=== PATIENT | female | born 1975 | race Caucasian/White ===

== ENCOUNTER 2017-07-03 08:07 | Emergency (ER) | payer MEDICAID ==
[2017-07-03] MEDS ORDERED: KETOROLAC TROMETHAMINE 30 MG/ML VIAL IM ONE (08:37)
[2017-07-03] MEDS ORDERED: ORPHENADRINE CITRATE 30 MG/ML VIAL IM ONE (08:38)
[2017-07-03] MEDS ORDERED: KETOROLAC TROMETHAMINE 30 MG/ML VIAL ONE (08:40)
[2017-07-03] MEDS ORDERED: ORPHENADRINE CITRATE 30 MG/ML VIAL ONE (08:48)
[2017-07-03 08:54] LABS: Urine Bilirubin Negative (NEGATIVE); Urine Ketone 5 mg/dL (NEGATIVE); Urine Nitrite Negative (NEGATIVE); Urine Protein Negative (NEGATIVE); Urine Specific Gravity >=1.030 SP.GR. (1.005-1.010); Urine Urobilinogen Normal (NORMAL)
[2017-07-03 09:06] LABS: Urine Amorphous Sediment Few - 1+ (NONE-FEW); Urine Appearance Clear; Urine Bacteria TRACE; Urine Blood 5 /ul (NEGATIVE); Urine Color Dark Yellow; Urine RBC 0-5 /hpf (0-5); Urine WBC None Seen /hpf (0-5)
--- NOTE | 2017-07-03 09:42 | ERNOTE ---
Back Pain ER HPI Date of Service: 07/03/17 Time Seen by Provider: 07/03/17 08:50 Source: patient Exam Limitations: no limitations Immunizations: IMMUNIZATION HX Immunizations Up to Date Yes History of Influenza Vaccine No Hx Pneumococcal Vaccination More Information Required Allergies/Adverse Reactions: Allergies No Known Allergies Allergy (Verified 07/03/17 08:21) Home Medications: HOME MEDICATIONS Alprazolam [Xanax] 1 mg PO PRN PRN 09/30/13 [Last Taken Unknown] Bupropion HCl [Buproban] 150 mg PO DAILY 09/30/13 [Last Taken Unknown] Hydrochlorothiazide 12.5 mg PO DAILY 09/30/13 [Last Taken Unknown] Levothyroxine Sodium [Tirosint] 75 mcg PO DAILY 09/30/13 [Last Taken Unknown] traMADol HCL [Ultram] 50 mg PO Q6H PRN #30 tablet 12/14/15 [Last Taken Unknown] Azithromycin [Zithromax] 500 mg PO NOW #6 tab 07/03/17 [Last Taken Unknown] Cyclobenzaprine HCl [Flexeril] 10 mg PO TID PRN #20 tab 07/03/17 [Last Taken Unknown] Narrative: Patient presents to the ED for right sided rib pain. She relates she has been coughing for over 2 weeks, bringing up thick sputum but having difficulty bringing up this sputum. No hemoptysis. Since last night she has been having right rib pain. This pain is worse with palpation and movement. No flank or abdominal pain. No SOB. Nothing truly pleuritic, she locates the pain with her hand and grimaces when she touches the area. Has not seen anyone else for this. She thinks she is having a muscle spasm from her cough. Pain can be severe with palpation. All right chest wall. Timing: Reports: constant Quality/Severity: Reports: severe Location of pain: Reports: other - right chest Activities at Onset: Reports: other - coughing Possible Precipitating Factor: Reports: none - coughing Modifying Factors - (Improves): Reports: other - rest Modifying Factors - (Worsens): Reports: movement to right, movement to left, cough/deep breaths Associated Symptoms: Denies: fever/chills, constipation/incontinence, nausea/ vomiting, problems urinating, difficulty walking, numbess/weakness in legs Review of Systems - Review of Systems Constitutional: Absent: fever ENT: Absent: sore throat Respiratory: Present: cough. Absent: shortness of breath Cardiology: Present: See HPI Gastrointestinal/Abdominal: Absent: abdominal pain Genitourinary: Absent: dysuria Musculoskeletal: Present: See HPI Skin: Absent: rash Neurological: Absent: weakness - Patient's Past Medical History Patient History - Medical: Anxiety, Hypothyroidism, Migraines, Other Patient History - Cardiac/Respiratory: No pertinent hx Patient History - Cancer: No Hx of Cancer Patient History - Surgical Procedures: Cholecystectomy, Hysterectomy - Social History Smoking Status: Current every day smoker Have you smoked in the past 12 months: Yes - Immunizations Immunizations Up to Date: Yes Hx Pneumococcal Vaccination: More Information Required to Determine History of Influenza Vaccine: No Physical Exam - Physical Exam General Appearance: Present: alert, no apparent distress Head Exam: Present: normal inspection, no evidence of injury Eye Exam: Normal inspection: bilateral, PERRL: bilateral Ears, Nose, Throat: Present: normal ENT inspection Neck: Present: normal inspection Respiratory: Present: no respiratory distress, normal breath sounds, no accessory muscle use, lungs clear. Absent: wheezing Cardiovascular/Chest: Present: regular rate, rhythm, no murmur, normal peripheral pulses, chest tenderness, other - she has completely reproducible tenderness right lateral chest. Palpation of the ribs causes complete reproducibility of her pain. no flank tenderness. No rash. Gastrointestinal/Abdominal: Present: normal bowel sounds, nontender, nondistended, soft Back Exam: Present: no vertebral tenderness. Absent: CVA tenderness (R), CVA tenderness (L) Extremity Exam: Present: normal inspection Neurological Exam: Present: alert, normal mood/affect, no motor/sensory deficits Skin Exam: Present: normal color, warm/dry ED Progress - Results and Orders Patient's Lab Results:: I have reviewed the patient's lab results. - Vital Signs Patient's Vital Signs:: I have reviewed the patient's vital signs. Vital Signs: Vital Signs 07/03/17 08:18 Temperature 36.8 C Pulse Rate 98 Respiratory 14 Rate Blood Pressure 109/57 O2 Sat by Pulse 97 Oximetry - X-Ray X-Ray #1 X-Ray: chest Interpretation: Interp. by me X-ray Comments: I reviewed official radiology report. - Progress/Reassessment Chief Complaint: Back Pain Progress Note-Subjective: 07/03/17 09:37 She was much improved after IM orphenadrine. Clinically this is musculoskeletal pain. No suggestion of ACS, PE, aortic dissection or other clear acute life threat. Given she has been coughing for over 2 weeks with bronchitis on CXR, will cover with ABx. She wants to go home. I discussed warning signs and reasons to return as well as the need for close f/u. Departure Clinical Impression: Rib pain, Bronchitis - Departure Disposition: Home self-care Condition: Stable Instructions: Musculoskeletal Pain Additional Instructions: Rest. Antibiotic as directed. Follow-up with your doctor in 2-3 days for a re- check. Return for increased pain, trouble breathing or if your condition worsens or changes in any way. no driving with muscle relaxant. Do not take Tramadol while taking the muscle relaxant. Referrals: Selin Bates, [employer]LY[employer] [Primary Care Provider] - Prescriptions: Azithromycin [Zithromax] 500 mg PO NOW #6 tab Cyclobenzaprine HCl [Flexeril] 10 mg PO TID PRN #20 tab PRN Reason: MUSCLE SPASMS
[2017-07-03 10:03] VITALS: BP 121/66
== END 2017-07-03 09:50 | disposition home or self-care (01) ==
LOC: ER 08:07
DX: R07.81 Pleurodynia (principal); J40 Bronchitis, not specified as acute or chronic; E03.9 Hypothyroidism, unspecified; F17.200 Nicotine dependence, unspecified, uncomplicated

== ENCOUNTER 2019-01-31 11:47 | Inpatient (IN) ==
--- NOTE | 2019-01-31 11:59 | ERNOTE ---
Integumentary HPI - Narrative Date of Service: 01/31/19 - General Presenting Symptoms: abscess Time Seen by Provider: 01/31/19 11:54 Source: patient Exam Limitations: no limitations - Immun/Allergies/Home Medications Immunizations: IMMUNIZATION HX Immunizations Up to Date Yes History of Influenza Vaccine No Hx Pneumococcal Vaccination No Allergies/Adverse Reactions: Allergies Allergy/AdvReac Type Severity Reaction Status Date / Time No Known Allergies Allergy Verified 01/31/19 11:57 Home Medications: HOME MEDICATIONS Alprazolam [Xanax] 1 mg PO PRN PRN 09/30/13 [Last Taken Unknown] Bupropion HCl [Buproban] 150 mg PO DAILY 09/30/13 [Last Taken Unknown] Hydrochlorothiazide 12.5 mg PO DAILY 09/30/13 [Last Taken Unknown] Levothyroxine Sodium [Tirosint] 75 mcg PO DAILY 09/30/13 [Last Taken Unknown] Clindamycin HCl [Cleocin HCl] 300 mg PO QID 10 Days #40 cap 01/26/19 [Last Taken Unknown] - Pain Pain Score: 10 - History of Present Illness Narrative: The patient is a 43 year old female who presents for right axilla pain which has been present since 01/24/19. There are associated symptoms of chills, sweats and nausea. The patient reports right axilla pain, 10/10. There are no alleviating factors. There are aggravating factors of palpation and ROM of right arm. Previous treatments have included: recent treatment with Clindamycin without improvement. The past medical history includes: chronic pain, depression, HTN and hypothyroid. The social history is positive for current tobacco use. The patient has had no ill contacts. Patient reports taking antibiotic as directed but having worsening symptoms for the past 2 days. Patient denies drainage from area. Review of Systems - Review of Systems Constitutional: Present: chills, diaphoresis, fatigue. Absent: fever EYE: Present: no symptoms reported ENT: Present: no symptoms reported. Absent: ear pain, nasal drainage, sore throat Respiratory: Present: no symptoms reported. Absent: shortness of breath, cough Cardiology: Present: no symptoms reported Gastrointestinal/Abdominal: Present: nausea. Absent: vomiting, diarrhea Genitourinary: Present: no symptoms reported Musculoskeletal: Present: joint pain Skin: Present: change in color Neurological: Present: no symptoms reported All Other Systems: All systems neg except as marked Medical History (Updated 01/31/19 @ 14:15 by Faby Brady DO) Chest pain Onset Date: Unknown Chicken pox Onset Date: Unknown Chronic back pain Onset Date: Unknown Depression Onset Date: 06/08/98 Dizziness Onset Date: Unknown Dysfunctional uterine bleeding Onset Date: 12/31/00 Endometriosis Onset Date: Unknown Foot pain Onset Date: 02/24/14 Hand injury Onset Date: 01/09/18 Headache Onset Date: Unknown Hernia Onset Date: 2001 small periumbilical hernia Hypertension Onset Date: 08/31/12 Hypothyroidism Onset Date: 08/31/12 Insomnia Onset Date: Unknown Pelvic pain Onset Date: 02/06/00 Plantar fascial fibromatosis Onset Date: 01/13/14 Shoulder pain, right Onset Date: Skin disorder Onset Date: Unknown UTI (urinary tract infection) Onset Date: 03/24/98 Vitamin B12 deficiency Onset Date: 08/31/12 Surgical History: Surgical History (Updated 01/31/19 @ 14:15 by Faby Brady DO) H/O laparoscopy Onset Date: Unknown H/O: hysterectomy Onset Date: Unknown History of cholecystectomy Onset Date: 2000 Diagnostic laparoscopy w/ cauteriztion of pelvic endometriosis by Dr. Lockhart. Laparoscopic cholecystectomy by Dr. Nehemiah Cross Family History: Family History (Updated 02/01/18 @ 13:11 by Anthony Chang MA) Aunt Cancer breast Thyroid disease Grandmother Cancer ovarian Grandfather Cancer lung and throat Hypertension Social History: Preferred Language [place] Do you have any mandaen or No cultural preference? Smoking Status Current every day smoker Abuse History No History of abuse Psych History Hx of Anxiety,Hx of Depression Alcohol Use none Drug Use marijuana (Last Updated 04/30/18 @ 14:27 by OZ Worrell) No Social History Section defined Physical Exam - Physical Exam General Appearance: Present: wd/wn, alert, moderate distress Head Exam: Present: normal inspection Eye Exam: Normal inspection: bilateral Neck: Present: normal inspection Respiratory: Present: no respiratory distress, normal breath sounds, no accessory muscle use, lungs clear Cardiovascular/Chest: Present: regular rate, rhythm, no murmur Peripheral Pulses: N=norm/S=strong/W=weak/B=bound/A=absent: Radial (R): Normal Extremity Exam: Present: normal range of motion Neurological Exam: Present: alert, oriented, normal mood/affect Skin Exam: Present: other - erythema to right axilla, 11cm x 10cm large area of induration Progress - Date and Time Seen: Date and Time: 01/31/19 13:13 Reviewed patient with , will present to evaluate patient. 01/31/19 13:38 present for consult. 01/31/19 14:10 Discussed case with , will admit patient observation for failed outpatient treatment, right axilla abscess and cellulitis. Will administer Vanco, culture pending due to failed outpatient treatment with Clindamycin. - Results and Orders Patient's Lab Results:: I have reviewed the patient's lab results. - Vital Signs Patient's Vital Signs:: I have reviewed the patient's vital signs. Vital Signs: Vital Signs 01/31/19 11:55 Temperature 36.5 C Pulse Rate 89 Respiratory Rate 15 Blood Pressure 107/66 O2 Sat by Pulse Oximetry 94 - CT/Ultrasound CT/Ultrasound Narrative: IMPRESSION: 1. FINDINGS SUGGESTING RIGHT AXILLARY ABSCESS WITH POSSIBLE AIR IN THE SOFT TISSUES. Electronically signed by Jayy Jefferson M.D.. - Progress/Reassessment Chief Complaint: Abscess Progress:: Improved Departure Clinical Impression: Abscess, Failure of outpatient treatment Cellulitis Qualifiers: Site of cellulitis: extremity Site of cellulitis of extremity: axilla Laterality: right Qualified Code(s): L03.111 - Cellulitis of right axilla - Departure Disposition: Still a patient Condition: Good
[2019-01-31] MEDS ORDERED: ONDANSETRON HCL/PF 2 MG/ML VIAL IV ONE (12:00)
[2019-01-31] MEDS ORDERED: HYDROmorphone HCL 1 MG/ML DISP.SYRIN IV ONE (12:00)
[2019-01-31 12:14] LABS: Hematocrit 38.6 % (37.0-47.0); Hemoglobin 12.8 gm/dL (12.5-16.0); Mean Cell Volume 92.3 fl (78-100); Mean Corpuscular Hemoglobin 30.6 pg (27-31); Mean Corpuscular Hgb Conc 33.2 g/dl (32-36); Mean Platelet Volume 9.7 fl (8-12.5); Neutrophil # 7.3 K/mm3 (1.3-6.0); Neutrophil % 73.7 % (42-75.0); Platelet Count 360 K/mm3 (150-450); Red Blood Count 4.18 M/mm3 (4.2-5.4); Red Cell Distribution Width 13.3 % (11.5-14.0); White Blood Count 9.9 K/mm3 (4.0-10.5)
[2019-01-31 12:28] LABS: Albumin * 2.6 gm/dl (3.4-5.0); Anion Gap 14.8 mmol/L (6.8-13.8); BUN/Creatinine Ratio 7.5 (9.0-21.6); Bilirubin, Total 0.1 mg/dL (0.0-1.1); Ca. Corrected For Albumin 9.5 mg/dL (8.4-10.2); Calcium * 8.7 mg/dL (7.9-10.9); Carbon Dioxide 25.2 mmol/L (24-32.6); Total Protein 6.5 gm/dL (6.2-8.2)
[2019-01-31] MEDS ORDERED: LIDOCAINE HCL 50 ML VIAL IJ ONE (13:41)
[2019-01-31] MEDS ORDERED: VANCOMYCIN HCL 1 GM in DEXTROSE 5 % IN WATER 250 ML IV ONE ×2 (13:55)
--- NOTE | 2019-01-31 14:15 | CONS ---
- Reason for consultation (1) Abscess Date of Service: 01/31/19 HPI - General Date of Service: 01/31/19 Narrative: Abscess- right axilla Source: patient Exam Limitations: no limitations - History of Present Illness Initial Comments: Yudi is a pleasant 43-year-old female who denies any trauma or interventions to the right axilla. She was previously in the ER and had an incision and drainage done. Was minimal output. She has gotten worse and returns to the ER. She states it is more painful. The erythema extends outside of the previous lines. This initially started on January 24. She has been on clindamycin but has not had improvement. She denies any drainage from the previous I&D site. Timing/Duration: other - January 24 Severity: moderate Modifying Factors - (Worsens): Reports: movement Modifying Factors - (Improves): Reports: immobilization Associated Symptoms: denies symptoms Allergies/Adverse Reactions: Allergies No Known Allergies Allergy (Verified 01/31/19 11:57) Home Medications: Home Medications Medication Instructions Recorded Last Taken Alprazolam [Xanax] 1 mg PO PRN PRN 09/30/13 Unknown Bupropion HCl [Buproban] 150 mg PO DAILY 09/30/13 Unknown Hydrochlorothiazide 12.5 mg PO DAILY 09/30/13 Unknown Levothyroxine Sodium [Tirosint] 75 mcg PO DAILY 09/30/13 Unknown Clindamycin HCl [Cleocin HCl] 300 mg PO QID 10 Days #40 cap 01/26/19 Unknown Procedures Application of splint (11/05/10) Closed [endoscopic] biopsy of large intestine (03/27/07) Esophagogastroduodenoscopy [EGD] with closed biopsy (03/27/07) Excision of lesion of tendon sheath of hand (05/06/07) Excision or destruction of lesion of cul-de- sac (06/07/06) Excision or destruction of peritoneal tissue (06/07/06) Immobilization of Right Lower Arm using Splint (12/14/15) Laparoscopic cholecystectomy (07/04/01) Other laparoscopic local excision or destruction of ovary (06/07/06) Review of Systems - Review of Systems Generalized/Overall Review: Present: Chills, Malaise EENTM: Present: No Symptoms Reported Respiratory: Present: No Symptoms Reported Cardiac: Present: No Symptoms Reported Abdominal: Present: No Symptoms Reported Genitourinary: Present: No Symptoms Reported Musculoskeletal: Present: No Symptoms Reported Neurological: Present: No Symptoms Reported Skin: Present: Lesions Endocrine: Present: No Symptoms Reported Physical Examination - Exam Vital Signs: Vital Signs - Last Taken Temp 36.5 C 01/31/19 11:55 Pulse 74 01/31/19 13:01 Resp 15 01/31/19 13:01 BP 98/48 01/31/19 13:01 Pulse Ox 98 01/31/19 13:01 O2 Oxygen Delivery Method Room Air Constitutional: Present: Oriented x3, Cooperative ENT Exam: Present: hearing grossly normal Eye Exam: bilateral eye: normal inspection Neck: Present: full range of motion Breasts: Present: Exam deferred Respiratory: Present: lungs clear, normal breath sounds, no respiratory distress Cardiovascular/Chest: Present: regular rate, rhythm, no JVD Abdomen: Present: soft /Rectal: Present: Exam deferred Extremity: Present: normal range of motion Skin Exam: Present: skin rash, other - Right axillary abscess Neurologic: Present: preservationist II-XII nml as tested Appearance: Present: appropriate appearance Eye contact: Present: cooperative, good eye contact, normal speech Thoughts: Present: normal thought pattern - Results and Findings: Lab/Microbiology results last 24 hrs: Abnormal/Pending Laboratory Last 24 HRS 01/31/19 01/31/19 01/31/19 12:10 12:10 12:05 RBC 4.18 L Neutrophils # 7.3 H Potassium 3.0 L Anion Gap 14.8 H BUN/Creatinine Ratio 7.5 L Random Glucose 131 H ALT 12 L C-Reactive Prot, Quant 7.7 H Albumin 2.6 L - Assessments/Findings (1) Abscess Problem: Acute Plan - Plan Plan: The patient is being admitted to the hospital for IV antibiotics. We will continue with wound care. I will see the patient again in the morning.
--- NOTE | 2019-01-31 14:19 | OR ---
Operative Report - Dictated Report Narrative: Date of Service: 01/31/19 Procedure: Incision and drainage of right axillary abscess Pre-procedure diagnosis: Right axillary abscess Post-procedure diagnosis: Same Surgeon: Dr. Faby Brady Anesthesia: Local Indication for procedure: Yudi is a pleasant 43-year-old female who has worsening swelling of the right axilla and an ultrasound which shows that possible abscess. Description of procedure: After appropriate verbal consent was obtained the area was cleansed with Betadine. Local anesthetic was injected. The previous incision was elongated. A large amount of purulent fluid was expelled. The patient tolerated the procedure with a moderate amount of pain. Culture was sent to the lab. The wound was packed with quarter-inch packing. Complications: none Specimens to pathology: Culture Estimated blood loss: Minimal Disposition: Patient is being admitted for IV antibiotics
[2019-01-31] MEDS: HYDROmorphone HCL 1 MG/ML DISP.SYRIN IV PRN ×3 (14:58→20:10)
--- NOTE | 2019-01-31 19:57 | HP ---
Chief Complaint - Chief Complaint Date of Service: 01/31/19 Time of Service: 19:57 Chief Complaint: R axilla abscess History of Present Illness: Ms. Cardona is a 43-year-old female who presented to the ER for right axilla pain with abscess and cellulitis. Patient had been seen by here in the ER roughly a week earlier for the same problem and had had an attempted I&D of this right axillary abscess with minimal return. Patient was discharged at that time and sent home on clindamycin which patient states that she had been taking appropriately since being seen previously. Treating ER provider states that the infection looks to have worsened, right upper extremity ultrasound showed a 4 cm x 0.5 cm abscess with possible free air and soft tissue. Dr. Schmitt of general surgery was consulted who came in and performed an I&D and was able to drain purulent fluid from the wound which was sent for culture. Patient was admitted to the floor due to failed outpatient treatment for her abscess and started on vancomycin. Lab work shows her to have a normal white count at 9.9 with no shift. Her came panel was fairly benign aside from low potassium at 3.0 and an elevated C- reactive protein at 7.7. Her vital signs have been stable and she has been afebrile. Medical History (Updated 01/31/19 @ 14:15 by Faby Brady DO) Chest pain Onset Date: Unknown Chicken pox Onset Date: Unknown Chronic back pain Onset Date: Unknown Depression Onset Date: 06/08/98 Dizziness Onset Date: Unknown Dysfunctional uterine bleeding Onset Date: 12/31/00 Endometriosis Onset Date: Unknown Foot pain Onset Date: 02/24/14 Hand injury Onset Date: 01/09/18 Headache Onset Date: Unknown Hernia Onset Date: 2001 small periumbilical hernia Hypertension Onset Date: 08/31/12 Hypothyroidism Onset Date: 08/31/12 Insomnia Onset Date: Unknown Pelvic pain Onset Date: 02/06/00 Plantar fascial fibromatosis Onset Date: 01/13/14 Shoulder pain, right Onset Date: ~02/2018 Skin disorder Onset Date: Unknown UTI (urinary tract infection) Onset Date: 03/24/98 Vitamin B12 deficiency Onset Date: 08/31/12 Surgical History: Surgical History (Updated 01/31/19 @ 14:15 by Faby Brady DO) H/O laparoscopy Onset Date: Unknown H/O: hysterectomy Onset Date: Unknown History of cholecystectomy Onset Date: 2000 Diagnostic laparoscopy w/ cauteriztion of pelvic endometriosis by Dr. Lockhart. Laparoscopic cholecystectomy by Dr. 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 Smoking Status Current every day smoker Have you smoked in the past 12 Yes months Do you dip or chew tobacco No Abuse History No History of abuse Psych History Hx of Anxiety,Hx of Depression Alcohol Use none Drug Use marijuana (Last Updated 04/30/18 @ 14:27 by OZ Worrell) No Social History Section defined Review Of Systems (GEN) - Review of Systems Generalized/Overall Review: Present: Chills. Absent: Fever EENTM: Present: No Symptoms Reported Respiratory: Present: No Symptoms Reported Cardiac: Present: No Symptoms Reported Abdominal: Present: No Symptoms Reported Genitourinary: Present: No Symptoms Reported Musculoskeletal: Present: Joint Pain - Right shoulder pain, Other - Soft tissue pain in right axilla Neurological: Present: No Symptoms Reported Skin: Present: Change in Color - Right axilla, Other - Warmth and pain right axilla Immunizations: IMMUNIZATION HX Immunizations Up to Date Yes History of Influenza Vaccine No Hx Pneumococcal Vaccination No Allergies/Adverse Reactions: Allergies Allergy/AdvReac Type Severity Reaction Status Date / Time No Known Allergies Allergy Verified 01/31/19 15:18 Home Medications: HOME MEDICATIONS Alprazolam [Xanax] 1 mg PO QID 09/30/13 [Last Taken 01/30/19] Bupropion HCl [Buproban] 150 mg PO DAILY 09/30/13 [Last Taken 01/30/19] Hydrochlorothiazide 12.5 mg PO DAILY 09/30/13 [Last Taken 01/31/19] Levothyroxine Sodium [Tirosint] 75 mcg PO DAILY 09/30/13 [Last Taken 01/30/19] Clindamycin HCl [Cleocin HCl] 300 mg PO QID 10 Days #40 cap 01/26/19 [Last Taken Unknown] Exam - Exam Vital Signs: Vital Signs - Last Taken Temp 37.1 C 01/31/19 19:03 Pulse 87 01/31/19 19:03 Resp 20 01/31/19 19:03 BP 110/64 01/31/19 19:03 Pulse Ox 98 01/31/19 19:03 Constitutional: Present: Alert, Oriented x3, Cooperative, Looks Older than stated age ENT Exam: Present: hearing grossly normal. Absent: nasal congestion, nasal drainage Eye Exam: bilateral eye: normal inspection Neck: Present: non-tender, supple Breasts: Present: Nontender - Right breast, Other - Right breast: No infection Respiratory: Present: lungs clear, normal breath sounds Cardiovascular/Chest: Present: regular rate, rhythm, no edema, no murmur Abdomen: Present: Normal bowel sounds, soft, nontender /Rectal: Present: Exam deferred Extremity: Present: other Skin Exam: Present: other - Right axillary cellulitic infection roughly 6 inches in diameter outlined in marker, skin is warm and tender to the touch. Abscess opened and packed, minimal drainage Appearance: Present: appropriate appearance, appropriate insight Eye contact: Present: cooperative, good eye contact Thoughts: Present: normal thought pattern, normal mood /affect Diagnostic Studies: Abnormal Lab Results 01/31/19 01/31/19 01/31/19 Range/Units 12:05 12:10 12:10 RBC 4.18 L (4.2-5.4) M/mm3 Neutrophils # 7.3 H (1.3-6.0) K/mm3 Potassium 3.0 L (3.4-4.6) mmol/L Anion Gap 14.8 H (6.8-13.8) mmol/L BUN/Creatinine Ratio 7.5 L (9.0-21.6) Random Glucose 131 H (70-110) mg/dL ALT 12 L (19-67) U/L C-Reactive Prot, Quant 7.7 H (0.0-0.9) mg/dL Albumin 2.6 L (3.4-5.0) gm/dl Laboratory Results WBC 9.9 K/mm3 (4.0-10.5) 01/31/19 12:10 RBC 4.18 M/mm3 (4.2-5.4) L 01/31/19 12:10 Hgb 12.8 gm/dL (12.5-16.0) 01/31/19 12:10 Hct 38.6 % (37.0-47.0) 01/31/19 12:10 MCV 92.3 fl (78-100) 01/31/19 12:10 MCH 30.6 pg (27-31) 01/31/19 12:10 MCHC 33.2 g/dl (32-36) 01/31/19 12:10 RDW 13.3 % (11.5-14.0) 01/31/19 12:10 Plt Count 360 K/mm3 (150-450) 01/31/19 12:10 MPV 9.7 fl (8-12.5) 01/31/19 12:10 Immature Gran % (Auto) 0.30 % (0.001-0.429) 01/31/19 12:10 Immature Gran # (Auto) 0.03 K/mm3 (0.000-0.0310) 01/31/19 12:10 73.7 % (42-75.0) 01/31/19 12:10 20.8 % (20-51) 01/31/19 12:10 4.4 % (0.0-9) 01/31/19 12:10 0.6 % (0.0-3.0) 01/31/19 12:10 0.2 % (0.0-1.0) 01/31/19 12:10 Nucleated RBC % 0.0 k/mm3 (0-1) 01/31/19 12:10 7.3 K/mm3 (1.3-6.0) H 01/31/19 12:10 2.06 k/mm3 (1.5-3.5) 01/31/19 12:10 0.4 k/mm3 (0.0-1.0) 01/31/19 12:10 0.1 k/mm3 (0.0-0.7) 01/31/19 12:10 Absolute Basophils 0.0 k/mm3 (0.0-0.1) 01/31/19 12:10 Sodium 141 mmol/L (132-142) 01/31/19 12:10 141 mmol/L (130-142) 01/31/19 12:10 Potassium 3.0 mmol/L (3.4-4.6) L 01/31/19 12:10 Chloride 104 mmol/L (97-106) 01/31/19 12:10 Carbon Dioxide 25.2 mmol/L (24-32.6) 01/31/19 12:10 14.8 mmol/L (6.8-13.8) H 01/31/19 12:10 BUN 6 mg/dL (3-23) 01/31/19 12:10 0.80 mg/dL (0.4-1.4) 01/31/19 12:10 Est GFR (Non-Af Amer) 83 mL/min (60-130) 01/31/19 12:10 7.5 (9.0-21.6) L 01/31/19 12:10 131 mg/dL (70-110) H 01/31/19 12:10 Calcium 8.7 mg/dL (7.9-10.9) 01/31/19 12:10 Calcium Adj for Albumin 9.5 mg/dL (8.4-10.2) 01/31/19 12:10 0.1 mg/dL (0.0-1.1) 01/31/19 12:10 AST 10 U/L (0-48) 01/31/19 12:10 ALT 12 U/L (19-67) L 01/31/19 12:10 162 U/L (50-170) 01/31/19 12:10 C-Reactive Prot, Quant 7.7 mg/dL (0.0-0.9) H 01/31/19 12:05 6.5 gm/dL (6.2-8.2) 01/31/19 12:10 2.6 gm/dl (3.4-5.0) L 01/31/19 12:10 Assessment/Plan - Narrative Narrative: Patient admitted to the floor as inpatient for failed outpatient treatment of right axillary abscess with associated cellulitis. Area is very tender and red. I&D performed under general surgery, cultures pending. Patient started on vancomycin 1 g every 12 hours. Trough ordered. Pain medication ordered for pain control. Patient will likely stay here for 24 to 48 hours until we get some preliminary culture results back which show speciation sensitivities for better oral antibiotic treatment. Patient should improve dramatically though just with I&D. Nicotine dependencenicotine patch as needed Patient has history of anxiety depression, home medications restarted. Patient has history of hypertension, hydrochlorthiazide restarted. Patient was started on regular diet, no DVT prophylaxis patient will likely be here less than 2 days and encourage ambulation often. Nurse will call with any questions or concerns. - Assessment/Plan (1) Abscess Problem: Acute (2) Cellulitis Problem: Acute Qualifiers: Site of cellulitis: extremity Site of cellulitis of extremity: axilla Laterality: right Qualified Code(s): L03.111 - Cellulitis of right axilla (3) Failure of outpatient treatment Problem: Acute (4) Nicotine dependence Problem: Acute
[2019-01-31] MEDS ORDERED: NICOTINE 14 MG PATC TD SCH (20:00)
[2019-01-31] MEDS ORDERED: NICOTINE 7 MG PATC TD SCH (21:00)
[2019-02-01] MEDS ORDERED: VANCOMYCIN HCL 750 MG in DEXTROSE 5 % IN WATER 250 ML IV SCH ×2 (02:30)
[2019-02-01] MEDS: VANCOMYCIN HCL 1,000 MG in DEXTROSE 5 % IN WATER 250 ML IV SCH ×4 (02:31→14:37)
[2019-02-01] MEDS: HYDROmorphone HCL 1 MG/ML DISP.SYRIN IV PRN ×8 (03:06→22:36)
--- NOTE | 2019-02-01 08:00 | PN ---
Dictated Progress Note - Date and Time Seen: Date: 02/01/19 Time: 07:58 - Progress Note Narrative: Patient is feeling better today. She still has pain but it has improved. She is afebrile. Vital Signs - Last Taken Temp 36.8 C 02/01/19 06:54 Pulse 74 02/01/19 06:54 Resp 18 02/01/19 06:54 BP 96/49 02/01/19 06:54 Pulse Ox 96 02/01/19 06:54 Abnormal/Pending Laboratory Last 24 HRS 01/31/19 01/31/19 01/31/19 12:10 12:10 12:05 RBC 4.18 L Neutrophils # 7.3 H Potassium 3.0 L Anion Gap 14.8 H BUN/Creatinine Ratio 7.5 L Random Glucose 131 H ALT 12 L C-Reactive Prot, Quant 7.7 H Albumin 2.6 L Culture 01/31/19 13:53 Abscess Culture - Preliminary Axilla No Growth NAD Right axilla has less erythema, it is adequately drained. Packing is in place. Nonlabored respirations Skin is warm and dry Imp: right axillary abscess which failed outpt treatment Plan: daily packing changes, mother will help with packing changes when dcd f/u with Dr. Cross next week in clinic as I will be out next week antibiotics ok for dc from surgery perspective, when ok with primary await final culture
--- NOTE | 2019-02-01 11:51 | PN ---
Subjective - Date and Time Seen Date: 02/01/19 Time: 11:51 Subjective Narrative: Patient admitted today, infection improving on vancomycin. Less redness and warmth. Patient had no acute events overnight. Patient states her pain is there but better. Vital signs been stable she is been afebrile. Objective - Review of Systems Generalized/Overall Review: Denies: Weakness, Chills, Fever EENTM: Reports: No Symptoms Reported Respiratory: Reports: No Symptoms Reported Cardiac: Reports: No Symptoms Reported Abdominal: Reports: No Symptoms Reported Musculoskeletal Complaints: Reports: Other - Right axillary soft tissue pain, redness, warmth Neurological: Reports: No Symptoms Reported Skin: Reports: Other - Right axillary soft tissue pain, redness, warmth - Vitals Vitals: Last Vital Signs Temp 36.8 C 02/01/19 10:12 Pulse 81 02/01/19 10:12 Resp 18 02/01/19 10:12 BP 97/50 02/01/19 10:12 Pulse Ox 95 02/01/19 10:12 - Abnormal Lab Findings Abnormal Lab Findings: Abnormal Lab Results 01/31/19 01/31/19 01/31/19 Range/Units 12:05 12:10 12:10 RBC 4.18 L (4.2-5.4) M/mm3 Neutrophils # 7.3 H (1.3-6.0) K/mm3 Potassium 3.0 L (3.4-4.6) mmol/L Anion Gap 14.8 H (6.8-13.8) mmol/L BUN/Creatinine Ratio 7.5 L (9.0-21.6) Random Glucose 131 H (70-110) mg/dL ALT 12 L (19-67) U/L C-Reactive Prot, Quant 7.7 H (0.0-0.9) mg/dL Albumin 2.6 L (3.4-5.0) gm/dl - Exam Constitutional: Present: Alert, Oriented x3, Cooperative ENT Exam: Present: hearing grossly normal. Absent: nasal congestion, nasal drainage Neck: Present: non-tender, supple Respiratory: Present: lungs clear, normal breath sounds Cardiovascular/Chest: Present: normal peripheral pulses, regular rate, rhythm, no murmur Abdomen: Present: Normal bowel sounds, soft, nontender /Rectal: Present: Exam deferred Extremity: Present: other - Right axillary cellulitic infection, warmth, tender to the touch. Packing in place her abscess had incision and drainage, minimal discharge at this time Skin Exam: Present: other - Cellulitic infection right axilla, roughly 6 inches in diameter, receding away from outlines Lymphatic: Present: no adenopathy Appearance: Present: appropriate appearance, appropriate insight Eye contact: Present: cooperative, good eye contact Thoughts: Present: normal thought pattern, normal mood /affect Assessment/Plan Plan Narrative: Patient admitted to the floor as inpatient for failed outpatient treatment of right axillary abscess with associated cellulitis. Area is very tender and red, improving from date of admission. I&D performed under general surgery, cultures pending though preliminary shows no growthlikely from clindamycin outpatient treatment. Patient started on vancomycin 1 g every 12 hours. Trough ordered. Pain medication ordered for pain control. Patient will likely stay here for 24 more hours for IV antibiotic treatment and possible speciation and sensitivities from wound culture. Patient should improve dramatically though just with I&D. Patient is afebrile and her vital signs are stable. Nicotine dependencenicotine patch as needed Patient has history of anxiety depression, home medications restarted. Patient has history of hypertension, hydrochlorthiazide restarted. Patient was started on regular diet, no DVT prophylaxis patient will likely be here less than 2 days and encourage ambulation often. Nurse will call with any questions or concerns. - Problems/Diagnosis (1) Abscess Problem: Acute (2) Cellulitis Problem: Acute Qualifiers: Site of cellulitis: extremity Site of cellulitis of extremity: axilla Laterality: right Qualified Code(s): L03.111 - Cellulitis of right axilla (3) Failure of outpatient treatment Problem: Acute (4) Anxiety Problem: Acute (5) Hypertension Problem: Acute (6) Nicotine dependence Problem: Acute
[2019-02-01] MEDS: LEVOTHYROXINE SODIUM 75 MCG TABLET PO SCH (12:50)
[2019-02-01] MEDS: buPROPion HCL 150 MG TABLET.SA PO SCH (12:50)
[2019-02-01] MEDS: HYDROCHLOROTHIAZIDE 12.5 MG CAPSULE PO SCH (12:51)
[2019-02-01] MEDS: ALPRAZolam 1 MG TABLET PO SCH ×3 (12:53→20:21)
[2019-02-01] MEDS: SERTRALINE HCL 50 MG TABLET PO SCH (14:32)
[2019-02-01] MEDS: PANTOPRAZOLE SODIUM 40 MG TABLET.EC PO SCH (14:32)
[2019-02-01] MEDS ORDERED: NICOTINE 14 MG PATC TD SCH (21:00)
[2019-02-02] MEDS ORDERED: VANCOMYCIN HCL LEVEL XX ONE (02:00)
[2019-02-02] MEDS: VANCOMYCIN HCL 1,000 MG in DEXTROSE 5 % IN WATER 250 ML IV SCH ×4 (02:22→13:44)
[2019-02-02] MEDS: HYDROmorphone HCL 1 MG/ML DISP.SYRIN IV PRN ×3 (03:24→16:24)
[2019-02-02] MEDS: PANTOPRAZOLE SODIUM 40 MG TABLET.EC PO SCH (07:50)
--- NOTE | 2019-02-02 07:50 | PN ---
Dictated Progress Note - Date and Time Seen: Date: 02/02/19 Time: 07:48 - Progress Note Narrative: Feeling better today, less pain. Vital Signs - Last Taken Temp 36.6 C 02/02/19 05:00 Pulse 72 02/02/19 05:00 Resp 16 02/02/19 05:00 BP 93/47 02/02/19 05:00 Pulse Ox 97 02/02/19 05:00 Culture 01/31/19 13:53 Abscess Culture - Preliminary Axilla Staphylococcus Species 01/31/19 13:29 Blood Culture - Preliminary Blood NO GROWTH 24 HOURS 01/31/19 12:05 Blood Culture - Preliminary Blood NO GROWTH 24 HOURS NAD non labored respirations erythema improved, posterior area of induration, no fluctuance Imp: abscess s/p I/D Plan: prelim wound staph, likely will be MRSA cont wound care and antibiotics f/u with Dr. Cross next week
[2019-02-02] MEDS: LEVOTHYROXINE SODIUM 75 MCG TABLET PO SCH (08:03)
[2019-02-02] MEDS: buPROPion HCL 150 MG TABLET.SA PO SCH (08:03)
[2019-02-02] MEDS: HYDROCHLOROTHIAZIDE 12.5 MG CAPSULE PO SCH (08:04)
[2019-02-02] MEDS: SERTRALINE HCL 50 MG TABLET PO SCH (08:04)
[2019-02-02] MEDS: ALPRAZolam 1 MG TABLET PO SCH ×3 (08:04→18:32)
[2019-02-02] MEDS ORDERED: POTASSIUM CHLORIDE 40 MEQ/15 ML LIQUID PO ONE (12:14)
--- NOTE | 2019-02-02 18:14 | DS ---
(1) Abscess Problem: Acute (2) Cellulitis Problem: Acute Qualifiers: Site of cellulitis: extremity Site of cellulitis of extremity: axilla Laterality: right Qualified Code(s): L03.111 - Cellulitis of right axilla (3) Failure of outpatient treatment Problem: Acute (4) Anxiety Problem: Acute (5) Hypertension Problem: Acute (6) Nicotine dependence Problem: Acute Description of Stay: 43-year-old female admitted to the hospital for failed outpatient treatment for right axillary abscess with associated cellulitis. General surgery was consulted who came in and perform an I&D. Wound was packed with quarter inch iodoform packing. Patient was started on vancomycin which she received 5 doses, vank trough was appropriate. Patient's infection and pain improved significantly over the last 2 days since being here. Patient has been afebrile and her vital signs been stable. Patient was ready to go home and continue outpatient treatment, waiting for speciation and sensitivities of the staph species still though it is likely MRSA. Will start her on Bactrim double strength twice daily for a week. She has clindamycin at home which I told her to keep but not start in case the sensitivities show her to be resistant to Bactrim. Patient stated understanding to this. Patient's mom has experienced with packing abscesses, and will do her packing for the next week or so daily. Advised her to keep the wound clean and dry after packing. She is to follow-up with her PCP in 1 to 2 weeks. We will send in a short course of tramadol to be taken prior to packing the wound which patient again stated her understanding to this as well. Of note patient was found to have a low potassium at 3.0 which was replaced. Procedures Performed: see notes below List Procedures: Right axillary abscess I&D Results and Findings: Pending Mircobiology Results 01/31/19 13:29 Blood Blood Culture - Preliminary NO GROWTH AFTER 48 HOURS 01/31/19 12:05 Blood Blood Culture - Preliminary NO GROWTH AFTER 48 HOURS 01/31/19 13:53 Axilla Abscess Culture - Preliminary Staphylococcus Species Lab Pending Results 01/31/19 12:05: C-Reactive Prot, Quant 7.7 H 01/31/19 12:10: WBC 9.9, RBC 4.18 L, Hgb 12.8, Hct 38.6, MCV 92.3, MCH 30.6, MCHC 33.2, RDW 13.3, Plt Count 360, MPV 9.7, Immature Gran % (Auto) 0.30, Immature Gran # (Auto) 0.03, Neutrophils % 73.7, Lymphocytes % 20.8, Monocytes % 4.4, Eosinophils % 0.6, Basophils % 0.2, Nucleated RBC % 0.0, Neutrophils # 7.3 H, Lymphocytes # 2.06, Monocytes # 0.4, Eosinophils # 0.1, Absolute Basophils 0.0 01/31/19 12:10: Sodium 141, Plasma Sodium 141, Potassium 3.0 L, Chloride 104, Carbon Dioxide 25.2, Anion Gap 14.8 H, BUN 6, Creatinine 0.80, Est GFR (Non-Af Amer) 83, BUN/Creatinine Ratio 7.5 L, Random Glucose 131 H, Calcium 8.7, Calcium Adj for Albumin 9.5, Total Bilirubin 0.1, AST 10, ALT 12 L, Alkaline Phosphatase 162, Total Protein 6.5, Albumin 2.6 L 02/02/19 02:01: Vancomycin Trough 15.7 Discharge Location: Home Disposition: Home self-care Condition: Good Discharge Activity: Activity as tolerated Discharge Diet: General/regular food Referrals: Selin Bates, JACQUIE [Primary Care Provider] - One Week Prescriptions (Any new or edited meds): Sulfamethoxazole/Trimethoprim [Bactrim Ds] 1 tab PO BID #14 tab traMADol HCL [Ultram] 50 mg PO DAILY #20 tablet Complete Home Medications List: Complete Home Medication List: Alprazolam [Xanax] 1 mg PO QID 09/30/13 Bupropion HCl [Buproban] 150 mg PO DAILY 09/30/13 Hydrochlorothiazide 12.5 mg PO DAILY 09/30/13 Levothyroxine Sodium [Tirosint] 75 mcg PO DAILY 09/30/13 Clindamycin HCl [Cleocin HCl] 300 mg PO QID 10 Days #40 cap 01/26/19 Omeprazole 40 mg PO DAILY 02/01/19 Sertraline HCl [Zoloft] 50 mg PO DAILY 02/01/19 Sulfamethoxazole/Trimethoprim [Bactrim Ds] 1 tab PO BID #14 tab 02/02/19 traMADol HCL [Ultram] 50 mg PO DAILY #20 tablet 02/02/19
[2019-02-02 18:49] VITALS: BP 112/71
[2019-02-03] MEDS ORDERED: SERTRALINE HCL 50 MG TABLET PO SCH (09:00)
[2019-02-03] MEDS ORDERED: OMEPRAZOLE 40 MG PO SCH (09:00)
== END 2019-02-02 18:40 | disposition home or self-care (01) | DRG 603 ==
LOC: MS 11:47 → ER 11:47 → MS 15:00
PROVIDERS: ADMIT Family Medicine; ATTEND Family Medicine
DX: I10 Essential (primary) hypertension; B95.62 Methicillin resistant Staphylococcus aureus infection as the cause of diseases classified elsewhere; F17.210 Nicotine dependence, cigarettes, uncomplicated; E87.6 Hypokalemia; E03.9 Hypothyroidism, unspecified; F41.9 Anxiety disorder, unspecified; L03.111 Cellulitis of right axilla; L02.411 Cutaneous abscess of right axilla
CPT/HCPCS: 36415; 76882; 80053; 80202; 85025; 86140; 87040; 87070; 87077; 87186; 96365; 96366; 96375; 96376; 99285; G0378; J2405